=== PATIENT | female | born 1965 | race Two or more races ===

== ENCOUNTER 2017-10-26 16:53 | Emergency (ER) | payer MEDICAID ==
[~2017-10-26] VITALS: Ht 172.7 cm; Wt 84.0 kg
[2017-10-26] MEDS ORDERED: HYDROCODONE/ACETAMINOPHEN 5/325MG TABLET PO STA ×2 (20:01→21:39)
[2017-10-26] MEDS ORDERED: KETOROLAC 60MG/2ML VIAL IM STA (20:01)
[2017-10-26 21:09] LABS: CLARITY URINE CLEAR (CLEAR); COLOR URINE YELLOW (YELLOW); KETONES URINE NEGATIVE (NEGATIVE); LEUKOCYTE ESTERASE URINE NEGATIVE (NEGATIVE); NITRITE URINE NEGATIVE (NEGATIVE); OCCULT BLOOD URINE 2+ (NEGATIVE); PH URINE 5.5 (4.5-8.0); PROTEIN URINE NEGATIVE (NEGATIVE); SPECIFIC GRAVITY URINE 1.021 (1.005-1.030)
[2017-10-26 21:58] VITALS: BP 118/70
== END 2017-10-26 21:59 | disposition home or self-care (01) ==
LOC: ER 16:53
DX: G89.29 Other chronic pain (principal); M54.41 Lumbago with sciatica, right side; M19.90 Unspecified osteoarthritis, unspecified site; I10 Essential (primary) hypertension; F12.10 Cannabis abuse, uncomplicated; Z90.710 Acquired absence of both cervix and uterus; Z98.890 Other specified postprocedural states
CPT/HCPCS: 71045; 72100; 81003; 96372; 99285; J1885